=== PATIENT | male | born 1990 | race Caucasian/White ===

== ENCOUNTER 2017-03-27 17:17 | Emergency (ER) | payer MEDICAID ==
[~2017-03-27] VITALS: Ht 177.8 cm; Wt 83.5 kg
[~2017-03-27 17:17] MED LIST: CARV12.52 PO
[2017-03-27 17:42] VITALS: BP_SYST 147; BP_SYST 156; BP_DIAS 112; BP_DIAS 95
--- NOTE | 2017-03-27 17:50 | NUR ---
PATIENT TO BED 12 AT THIS TIME.
--- NOTE | 2017-03-27 18:00 | NUR ---
LOCKED JAW SINCE 11 AM, PT WOKE UP AND YAWNED, UNABLE TO CLOSE HIS MOUTH . DENIES N/V/D; SKIN IS PINK/WARM/DRY; AAOX4 WITH EVEN AND STEADY GAIT; LUNGS CLEAR BL; HR EVEN AND REGULAR; PT DENIES ANY FEVER, CP, SOB, OR COUGH AT THIS TIME; PATIENT STATES PAIN OF 7/10 AT THIS TIME; VSS; PATIENT POSITIONED FOR COMFORT; HOB ELEVATED; BEDRAILS UP X2; BED DOWN. ER MD MADE AWARE OF PT STATUS.
[2017-03-27] MEDS ORDERED: MIDAZOLAM 2 MG/2 ML VIAL IM ONE (18:15)
[2017-03-27] MEDS ORDERED: MORPHINE SULFATE 2 MG/ML SYR IM ONE (18:15)
--- NOTE | 2017-03-27 19:51 | NUR ---
PT ALERT AND ORIENTED X 4, AMBULATORY WITH A STEADY GAIT. NO S/S OF DISTRESS NOTED.
[2017-03-27 19:52] VITALS: BP 143/79
--- NOTE | 2017-03-27 19:52 | NUR ---
Patient discharged with v/s stable. Written and verbal after care instructions given and explained. Patient alert, oriented and verbalized understanding of instructions. Ambulatory with steady gait. All questions addressed prior to discharge. ID band removed. Patient advised to follow up with PMD IN 2-3 DAYS. Rx of MOTRIN given. Patient educated on indication of medication including possible reaction and side effects. Opportunity to ask questions provided and answered.
== END 2017-03-27 19:52 | disposition home or self-care (01) ==
LOC: MED 17:17
DX: S03.00XA Dislocation of jaw, unspecified side, initial encounter (principal); J45.909 Unspecified asthma, uncomplicated; Z79.899 Other long term (current) drug therapy; X58.XXXA Exposure to other specified factors, initial encounter; Y93.89 Activity, other specified; Y92.89 Other specified places as the place of occurrence of the external cause; Y99.8 Other external cause status
CPT/HCPCS: 21480; 70110; 99284; J2250; J2270

== ENCOUNTER 2017-04-22 08:39 | Emergency (ER) | payer MEDICAID ==
[~2017-04-22] VITALS: Ht 177.8 cm; Wt 87.5 kg
[2017-04-22 08:48] VITALS: BP 155/97
--- NOTE | 2017-04-22 09:09 | NUR ---
PATIENT PRESENTS TO ED WITH NASAL ISSUES . PT STATES . DENIES N/V/D; SKIN IS PINK/WARM/DRY; AAOX4 WITH EVEN AND STEADY GAIT; LUNGS CLEAR BL; HR EVEN AND REGULAR; PT DENIES ANY FEVER, CP, SOB, OR COUGH AT THIS TIME; PATIENT STATES PAIN OF 4/10 AT THIS TIME; VSS; PATIENT POSITIONED FOR COMFORT; HOB ELEVATED; BEDRAILS UP X2; BED DOWN. ER MD MADE AWARE OF PT STATUS.
--- NOTE | 2017-04-22 09:18 | NUR ---
MARISELA HULL FOR FACIAL CT---
[2017-04-22 09:58] VITALS: BP 155/97
--- NOTE | 2017-04-22 09:59 | NUR ---
Patient discharged with v/s stable. Written and verbal after care instructions given and explained. Patient alert, oriented and verbalized understanding of instructions. Ambulatory with steady gait. All questions addressed prior to discharge. ID band removed. Patient advised to follow up with PMD. Rx of FLONASE given. Patient educated on indication of medication including possible reaction and side effects. Opportunity to ask questions provided and answered. CT READ AND CD HANDED TO PT ALONG WITH ENT REFERRAL
== END 2017-04-22 09:59 | disposition home or self-care (01) ==
LOC: MED 08:39
DX: J34.2 Deviated nasal septum (principal); K02.9 Dental caries, unspecified; J45.909 Unspecified asthma, uncomplicated; I10 Essential (primary) hypertension; Z79.899 Other long term (current) drug therapy
CPT/HCPCS: 70486; 99284

== ENCOUNTER 2017-06-22 23:05 | Emergency (ER) | payer MEDICAID ==
[~2017-06-22] VITALS: Ht 175.3 cm; Wt 85.7 kg
[2017-06-22 23:23] VITALS: BP 151/100
--- NOTE | 2017-06-23 00:24 | NUR ---
Damaris jin in [facility] - 06/23/17 at 0034 by MEDRJJ UA DONE, HCG NEG
--- NOTE | 2017-06-23 01:00 | NUR ---
PT BIB SELF C/O HIP AND LOWER BACK PAIN , SHOULDER PAIN, FOR 2 WEEKS. PT DENIES N/V/D; SKIN IS INTACT, PINK/WARM/DRY; AAOX4, PERRL, WITH EVEN AND STEADY GAIT; LUNGS CLEAR BL, BREATHING UNLABORED; HR EVEN AND REGULAR, BL PERIPHERAL PULSES PRESENT; BS ACTIVE X4, NO TENDERNESS TO PALPATION. PT DENIES ANY FEVER, CP, SOB, OR COUGH AT THIS TIME; PT STATES 4/10 PAIN AT THIS TIME; VSS; PATIENT POSITIONED FOR COMFORT; HOB ELEVATED; BEDRAILS UP X2; BED DOWN.
[2017-06-23 01:53] VITALS: BP 145/99
--- NOTE | 2017-06-23 01:55 | NUR ---
Patient discharged with v/s stable. Written and verbal after care instructions given and explained. Patient alert, oriented and verbalized understanding of instructions. Ambulatory with steady gait. All questions addressed prior to discharge. ID band removed. Patient advised to follow up with PMD. Rx of FLEXERIL 10MG given. Patient educated on indication of medication including possible reaction and side effects. Opportunity to ask questions provided and answered.
== END 2017-06-23 01:55 | disposition home or self-care (01) ==
LOC: MED 23:05
DX: M54.9 Dorsalgia, unspecified (principal); J45.909 Unspecified asthma, uncomplicated; I10 Essential (primary) hypertension
CPT/HCPCS: 72072; 72100; 81002; 81025; 99284

== ENCOUNTER 2017-07-06 22:32 | Emergency (ER) | payer MEDICAID ==
[~2017-07-06] VITALS: Ht 177.8 cm; Wt 85.7 kg
[2017-07-06 22:34] VITALS: BP 155/90
--- NOTE | 2017-07-06 22:45 | NUR ---
PATIENT AMBULATED TO CHAIR A
--- NOTE | 2017-07-06 22:50 | NUR ---
PATIENT PRESENTS TO ED WITH SOB, NAUSEA, VOMITING X1 MONTH. SKIN IS PINK/WARM/DRY; AAOX4 WITH EVEN AND STEADY GAIT; LUNGS CLEAR BL; HR EVEN AND REGULAR; PT DENIES ANY FEVER, CP, OR COUGH AT THIS TIME; PATIENT STATES PAIN OF 9/10 AT THIS TIME; VSS; PATIENT POSITIONED FOR COMFORT; SITTIN GUPRIGHT IN CHAIR. ER MD MADE AWARE OF PT STATUS.
[2017-07-06] MEDS ORDERED: NACL 0.9% 1,000 ML IV ONE (22:55)
[2017-07-06] MEDS ORDERED: KETOROLAC 30 MG/ML VIAL IVP ONE (22:55)
[2017-07-06] MEDS ORDERED: ONDANSETRON 4 MG/2 ML VIAL IVP ONE (22:55)
--- NOTE | 2017-07-06 23:00 | NUR ---
PATIENT TO CT
--- NOTE | 2017-07-06 23:06 | NUR ---
PATIENT BACK FROM CT
[2017-07-06] MEDS ORDERED: PANTOPRAZOLE 40 MG TABEC PO ONE (23:35)
[2017-07-07 00:43] VITALS: BP 145/84
--- NOTE | 2017-07-07 00:43 | NUR ---
Patient discharged with v/s stable. Written and verbal after care instructions given and explained. Patient alert, oriented and verbalized understanding of instructions. Ambulatory with steady gait. All questions addressed prior to discharge. ID band removed. Patient advised to follow up with PMD. Rx of MOTRIN, PENICILLIN, ROBAXIN, PROTONIX given. Patient educated on indication of medication including possible reaction and side effects. Opportunity to ask questions provided and answered.
== END 2017-07-07 00:43 | disposition home or self-care (01) ==
LOC: MED 22:32
DX: K04.7 Periapical abscess without sinus (principal); K21.9 Gastro-esophageal reflux disease without esophagitis; M54.9 Dorsalgia, unspecified; J45.909 Unspecified asthma, uncomplicated; I10 Essential (primary) hypertension; Z79.899 Other long term (current) drug therapy
CPT/HCPCS: 72080; 99283

== ENCOUNTER 2017-08-14 08:40 | Emergency (ER) | payer MEDICAID ==
[~2017-08-14] VITALS: Ht 177.8 cm; Wt 84.4 kg
[2017-08-14 08:43] VITALS: BP 153/77
--- NOTE | 2017-08-14 08:50 | NUR ---
PT AMB TO [facility]. Addendum: 08/14/17 at 0854 by [email or web address] WITH [place] [employer].
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
--- NOTE | 2017-08-14 09:21 | NUR ---
Patient being evaluated by DR ASCENCIO at bedside.
--- NOTE | 2017-08-14 09:30 | NUR ---
PT TAKEN TO X-RAY VIA W/C ACCOMPANIED BY [email or web address].
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
[2017-08-14 10:11] VITALS: BP 150/78
== END 2017-08-14 10:07 ==
LOC: MED 08:40
DX: Z02.89 Encounter for other administrative examinations (principal); S60.222A Contusion of left hand, initial encounter; S60.221A Contusion of right hand, initial encounter; S20.219A Contusion of unspecified front wall of thorax, initial encounter; J45.909 Unspecified asthma, uncomplicated; I10 Essential (primary) hypertension; F20.9 Schizophrenia, unspecified; Z79.899 Other long term (current) drug therapy; X58.XXXA Exposure to other specified factors, initial encounter; Y93.89 Activity, other specified; Y92.89 Other specified places as the place of occurrence of the external cause; Y99.8 Other external cause status
CPT/HCPCS: 73000; 73130; 99284

== ENCOUNTER 2018-11-08 00:30 | Emergency (ER) | payer MEDICAID ==
[~2018-11-08] VITALS: Ht 170.2 cm; Wt 81.6 kg
[2018-11-08 00:32] VITALS: BP 153/99
[2018-11-08] MEDS ORDERED: LISINOPRIL 10 MG TAB ONE (00:56)
[2018-11-08 01:00] VITALS: BP 132/98
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
[2018-11-08] MEDS ORDERED: LISINOPRIL 20 MG TAB PO SCH (09:00)
== END 2018-11-08 01:00 ==
LOC: MED 00:30
DX: I10 Essential (primary) hypertension (principal); J45.909 Unspecified asthma, uncomplicated; Z02.89 Encounter for other administrative examinations; Z79.899 Other long term (current) drug therapy
CPT/HCPCS: 99283

== ENCOUNTER 2020-10-12 01:35 | Emergency (ER) | payer MEDICAID ==
[~2020-10-12] VITALS: Ht 175.3 cm; Wt 78.0 kg
[2020-10-12 01:49] VITALS: BP 168/98
[2020-10-12] MEDS ORDERED: NACL 0.9% 500 ML IV ONE (02:25)
[2020-10-12] MEDS ORDERED: KETOROLAC 30 MG/ML VIAL IVP ONE (02:25)
[2020-10-12 02:38] LABS: BASOPHILS % (AUTO) 0.3 % (0.0-2.0); EOSINOPHILS # (AUTO) 0.1 K/uL (0-0.4); EOSINOPHILS % (AUTO) 0.8 % (0.0-4.0); HEMATOCRIT 44.2 % (36-52); HEMOGLOBIN 15.1 g/dL (12.0-18.0); LYMPHOCYTES # (AUTO) 2.3 K/uL (2.0-11.5); LYMPHOCYTES % (AUTO) 23.1 % (20.5-51.1); MEAN CORPUSCULAR HEMOGLOBIN 30 pg (27-31); MEAN CORPUSCULAR HGB CONC 34 g/dL (33-37); MEAN CORPUSCULAR VOLUME 88.4 fL (80-94); MONOCYTES # (AUTO) 0.4 K/uL (0.8-1.0); MONOCYTES % (AUTO) 4.2 % (1.7-9.3); NEUTROPHILS # (AUTO) 7.1 K/uL (1.8-7.7); NEUTROPHILS % (AUTO) 71.6 % (42.2-75.2); PLATELET COUNT (AUTO) 331 K/uL (140-450); RED CELL DISTRIBUTION WIDTH 12.7 % (11.6-13.7); WHITE BLOOD COUNT (AUTO) 9.9 K/uL (4.8-10.8)
[2020-10-12 02:53] LABS: ALBUMIN 4.6 g/dL (3.4-5.0); ANION GAP 12.8 (8-16); CARBON DIOXIDE 27.6 mmol/L (21-32); POTASSIUM 3.4 mmol/L (3.5-5.1); TOTAL BILIRUBIN 0.3 mg/dL (0.0-1.0)
[2020-10-12] MEDS ORDERED: IBUPROFEN 800 MG TAB PO ONE (05:20)
[2020-10-12] MEDS ORDERED: KETOROLAC 30 MG/ML VIAL ONE (05:24)
[2020-10-12] MEDS ORDERED: IBUP-2218 PO ×2 (07:34→07:45)
[2020-10-12 07:38] VITALS: BP 168/98
== END 2020-10-12 07:39 | disposition home or self-care (01) ==
LOC: MED 01:35
DX: M79.604 Pain in right leg (principal); M79.605 Pain in left leg; J45.909 Unspecified asthma, uncomplicated; I10 Essential (primary) hypertension; V98.8XXA Other specified transport accidents, initial encounter; Y93.89 Activity, other specified; Y92.89 Other specified places as the place of occurrence of the external cause; Y99.8 Other external cause status
CPT/HCPCS: 36415; 70450; 71250; 72125; 72132; 73590; 74176; 80053; 85025; 96360; 99285; J7030; Q9967; J1885